=== PATIENT | female | born 1950 | race Caucasian/White ===

== ENCOUNTER → 2021-04-11 | Outpatient (CLI) | payer BC ==
[~2021-04-11] MED LIST: ACHD5005 PO; MECL12.579 PO; METO-272 PO; TRIA1CAP PO
--- NOTE | 2021-04-11 11:45 | Diagnostic Imaging Report ---
EXAMINATION: Hepatic ultrasound. TECHNIQUE: Multiple real-time grayscale images were obtained over the right upper quadrant in various projections. INDICATION: Elevated liver enzymes. COMPARISON: There are no prior studies available for comparison. FINDINGS: The liver does not appear to be enlarged, and there is no focal mass involving the liver. The biliary tree is not abnormally dilated. Spectral and color-flow imaging of the portal vein shows the vein is patent. There is no evidence for cholelithiasis or acute cholecystitis, and the common bile duct is not dilated. The pancreas and the aorta were obscured by bowel gas. The right kidney was visualized. There is no evidence for a solid renal mass, but there does appear to be a roughly 1 cm cyst along the superior pole of the right kidney. This cyst has a generally benign appearance. IMPRESSION: 1. There is no acute abnormality of the right upper quadrant. 2. The liver does not appear to be enlarged, and there is no focal mass involving the liver. 3. The small cyst associated with the right kidney is most likely a benign process. Dictated by: Dictated on workstation # [id number]
== END ==
LOC: RAD 09:15
PROVIDERS: ATTEND Internal Medicine
DX: N28.1 Cyst of kidney, acquired (principal); R94.5 Abnormal results of liver function studies
CPT/HCPCS: 76705